=== PATIENT | male | born 1965 | race African-American/Black ===

== ENCOUNTER 2017-09-10 10:00 | Outpatient (RCR) | payer MEDICAID | END 2017-09-26 | LOC: M OUTALCOH 10:00 | PROVIDERS: ATTEND Psychiatry & Neurology Psychiatry | DX: F11.20 Opioid dependence, uncomplicated (principal); F17.200 Nicotine dependence, unspecified, uncomplicated ==

== ENCOUNTER → 2017-09-11 | Outpatient (REF) ==
--- NOTE | 2017-09-11 14:14 | REP ---
Clinical: Pain and disability. Technique: AP, lateral, coned-down views of the lumbosacral spine. Comparison: 09/06/2017. Findings: Alignment and lordosis maintained. Mild to moderate endplate sclerosis, disc space narrowing and small marginal osteophytes are identified at the L3-4 through L5-S1 levels consistent with degenerative changes and most pronounced at the L5-S1 level. No acute fracture / compression injury or subluxation. Impression: Mild/moderate multilevel degenerative changes. Signed by Pavel Keita MD 09/11/2017 02:05 P
--- NOTE | 2017-09-11 14:29 | REP ---
CERVICAL SPINE, THREE VIEWS: HISTORY: Degenerative disc disease. The cervical spine is visualized from C1 to the C7 level in the lateral radiograph. There is no acute fracture or subluxation. The intervertebral discs are normal in height. An osteophyte is present on C6. IMPRESSION: There is no acute fracture or subluxation. Signed by Rafael Venegas MD 09/11/2017 02:31 P
== END ==
LOC: M SMT 13:11
PROVIDERS: ATTEND Internal Medicine
DX: Z02.9 Encounter for administrative examinations, unspecified (principal)

== ENCOUNTER 2017-10-15 08:21 | Emergency (ER) | payer MEDICAID, OTHER ==
[~2017-10-15] VITALS: Ht 172.7 cm; Wt 92.3 kg
[2017-10-15] MEDS ORDERED: NORCO, ANEXSIA 5/325MG TABLET (HYDROcodone/ACETAMINOPHEN) PO ONE (09:00)
--- NOTE | 2017-10-15 09:37 | REP ---
Left hand series: Four views. History: Injury in a fall. Findings: There is diffuse dorsal soft tissue swelling over the carpus and metacarpal bones on the lateral film. There is a dorsally displaced chip fracture at the carpus most compatible with a dorsal triquetral chip fracture. This cannot be seen on any other view. There are old appearing accessory ossicles adjacent to the distal navicula on the radial side of the wrist and adjacent to the triquetrum and pisiform on the ulnar side of the wrist. These do not appear to be acute fractures. No metacarpal fracture or phalangeal fracture is seen. Impression: Dorsal triquetral chip fracture. Diffuse dorsal soft tissue swelling at the wrist and over the metacarpals. Signed by Flo Rangel MD 10/15/2017 02:21 P
--- NOTE | 2017-10-15 09:39 | REP ---
Left wrist series: Four views. History: Injury in a fall on a palmar flexed hand. Findings: There is a dorsal chip fracture at the carpus consistent with a dorsal triquetral chip fracture. Old accessory ossicles are seen adjacent to the distal navicular bone and at the ulnar aspect of the pisiform. There is diffuse dorsal swelling. No other fracture. Impression: Dorsal triquetral chip fracture. Signed by Flo Rangel MD 10/15/2017 02:22 P
[2017-10-15] MEDS ORDERED: IBUP80TA PO (09:47)
[2017-10-15 09:59] VITALS: BP 153/94
== END 2017-10-15 10:05 | disposition home or self-care (01) ==
LOC: M ED 08:21
DX: S62.112A Displaced fracture of triquetrum [cuneiform] bone, left wrist, initial encounter for closed fracture (principal); W00.0XXA Fall on same level due to ice and snow, initial encounter; Y92.018 Other place in single-family (private) house as the place of occurrence of the external cause; Y93.89 Activity, other specified; Y99.8 Other external cause status; F17.210 Nicotine dependence, cigarettes, uncomplicated